=== PATIENT | male | born 1970 | race Caucasian/White ===

== ENCOUNTER 2019-01-10 10:20 | Outpatient (CLI) | payer OTHER ==
[2015-07-21 10:29] VITALS: BP 122/66
[2019-01-10 11:05] LABS: HDL 49 mg/dL (>40); eGFR (Non-African) > 60
== END 2019-01-10 10:23 ==
LOC: LAB 10:20
PROVIDERS: ATTEND Nurse Practitioner Family
DX: Z00.00 Encounter for general adult medical examination without abnormal findings (principal)
CPT/HCPCS: 36415; 80053; 80061